=== PATIENT | female | born 1955 | race Caucasian/White ===

== ENCOUNTER → 2017-09-20 14:04 | Outpatient (CLI) | payer BC, SELFPAY ==
--- NOTE | 2017-09-20 14:10 | XR_ITS ---
XR chest 2V HISTORY: ITS.REASON: COPD WITH EXACERBATION ORDERING PHYSICIAN: Prisca Boone PATIENT AGE: 62 years COMPARISON: None FINDINGS: Unremarkable cardiovascular structures. There is hyperinflation with attenuation of the peripheral pulmonary vessels consistent with COPD. No lobar consolidation or collapse. Minimal blunting left CP angle. Small opacity noted in the right CP angle at 1 cm nonspecific. IMPRESSION: COPD, no acute finding. Nonspecific opacity right lung base with minimal blunting left CP angle. Follow-up suggested to confirm stability
== END ==
PROVIDERS: PCP Family Medicine; Visit Provider Nurse Practitioner
DX: J44.1 Chronic obstructive pulmonary disease with (acute) exacerbation (principal)
CPT/HCPCS: 71046

== ENCOUNTER → 2017-10-19 10:17 | Outpatient (CLI) | payer BC, SELFPAY ==
[2017-10-19 10:45] LABS: Blood Urea Nitrogen 27 mg/dL (7-18); Creatinine,Serum 1.13 mg/dL (0.55-1.02); Estimated Glomerular Filt Rate 49 ml/min (>60); GFR (African American) 59 ML/MIN (>60)
--- NOTE | 2017-10-19 11:03 | CT_ITS ---
CT chest w con HISTORY: ITS.REASON: ABNORMAL FINDING CXR,PERSONAL HX OF SMOKING ORDERING PHYSICIAN: Prisca Boone PATIENT AGE: 62 years COMPARISON: None TECHNIQUE: Axial images obtained following the administration of 75 mL of Isovue 370 . Sagittal, and coronal reformatted images are also generated and reviewed. All CT scans at the facility use one or more dose reduction, viz: automated exposure control; ma/kV adjustment per patient size (including targeted exams where dose is matched to indication; i.e. head); or iterative reconstruction technique. FINDINGS: There are scattered small mediastinal lymph nodes measuring up to 1.4 x 1 cm in the precarinal region. Normal heart size. No evidence of pericardial effusion. No mediastinal or hilar mass. There are centrilobular emphysematous changes with scattered areas of fibrosis.. There is an irregular opacity in the right upper lobe anteriorly and inferiorly with a component of this opacity measuring 12 x 11 mm with some adjoining irregular density inferior to this region. This may very well represent postinflammatory fibrotic change. Recommend a short-term CT follow-up in 3 months to confirm short-term stability. Other fibrotic changes are present as well including areas in the lower lobes and lingula. A 4 mm noncalcified nodules present in the superior segment of the left lower lobe. No effusions or infiltrates. Upper abdominal images are unremarkable. No dense of aneurysm or central pulmonary embolus. No acute bony anomalies. IMPRESSION: 1. Centrilobular emphysema with scattered areas of fibrosis. 2. 12 mm irregular opacity involving the nature aspect of the right upper lobe inferiorly which may be due to an area of pulmonary fibrosis. Recommend 3 month follow-up to confirm short-term stability
== END ==
PROVIDERS: Family Provider Family Medicine; PCP Family Medicine; Visit Provider Nurse Practitioner
DX: R93.8 Abnormal findings on diagnostic imaging of other specified body structures (principal); Z87.891 Personal history of nicotine dependence
CPT/HCPCS: 36415; 71260; 82565; 84520; Q9967

== ENCOUNTER → 2018-02-07 12:54 | Outpatient (CLI) | payer BC, SELFPAY ==
[2018-02-07 13:14] LABS: Blood Urea Nitrogen 19 mg/dL (7-18); Creatinine,Serum 0.93 mg/dL (0.55-1.02); Estimated Glomerular Filt Rate 61 ml/min (>60); GFR (African American) 74 ML/MIN (>60)
--- NOTE | 2018-02-07 13:23 | CT_ITS ---
CT chest w con HISTORY: Follow-up pulmonary nodule, follow-up abnormal chest CT ITS.REASON: PULMONARY NODULE ORDERING PHYSICIAN: Zachary Diaz MD PATIENT AGE: 62 years COMPARISON: 10/19/2017 TECHNIQUE: Axial images obtained following the administration of 75 mL of Isovue 370 . Sagittal, and coronal reformatted images are also generated and reviewed. All CT scans at the facility use one or more dose reduction, viz: automated exposure control, ma/kV adjustment per patient size (including targeted exams where dose is matched to indication, i.e. head), or iterative reconstruction technique. FINDINGS: Scattered small lymph nodes present in the mediastinum not significant changed. There are coronary artery calcifications. No mediastinal or hilar mass apparent. No evidence of aortic aneurysm or dissection. There are atheromatous changes of the aorta. No evidence of central pulmonary embolus. There is normal heart size without evidence of pericardial effusion. Centrilobular emphysema. The previously noted irregular opacity in the right upper lobe anteriorly is no longer apparent with only a small opacity noted at this region in subpleural area consistent with an area of inflammation or infection which has resolved Asymmetric density in the left apex once again noted not significantly changed. There is mild bronchial thickening. Fibrotic changes are present in the left lung base. There is a noncalcified 4 mm nodule in the central aspect of the left lower lobe unchanged. There are a few subpleural nodular opacities which are 2 or 3 mm unchanged. No new nodules evident. Upper abdominal images are unremarkable. No acute bony findings. IMPRESSION: 1. Centrilobular is edema/COPD with left apical fibrosis. 2. Right upper lobe nodule is no longer apparent. Only minimal residual density noted in this region consistent with an area of inflammation or infection chest resolved. 3. No new nodules apparent.
--- NOTE | 2018-02-07 13:43 | HMH.ITSHM ---
DENISE ORANTES BREO ALBUTEROL
== END ==
PROVIDERS: Nurse Practitioner; Family Provider Family Medicine; PCP Family Medicine; Visit Provider Family Medicine
DX: R91.1 Solitary pulmonary nodule (principal)
CPT/HCPCS: 36415; 71260; 82565; 84520; Q9967

== ENCOUNTER → 2018-11-23 11:47 | Outpatient (CLI) | payer BC, SELFPAY ==
--- NOTE | 2018-11-23 11:51 | XR_ITS ---
EXAM: XR thoracic spine 3V HISTORY: ITS.REASON: THORACIC BACK PAIN,SPASM OF THORACIC MUSCLE Comparison: None FINDINGS: Bone density and vertebral body heights are normal. There are multiple mid and lower thoracic areas of loss of disc space height which is greater in the mid thoracic area multiple levels with small anterior spurs. There is no subluxation or paraspinal soft tissue densities. Posterior elements are intact. There is mild curvature, convex towards the right of approximately 4 degrees at T8-9 level. Impression: No acute process. Generalized mid and lower chronic vertebral osteochondrosis. Secondary mild midthoracic dextroscoliosis.
== END ==
PROVIDERS: PCP Family Medicine; Visit Provider Nurse Practitioner
DX: M54.6 Pain in thoracic spine (principal); M62.830 Muscle spasm of back
CPT/HCPCS: 72072

== ENCOUNTER → 2020-08-12 11:08 | Outpatient (CLI) | payer OTHER, SELFPAY ==
--- NOTE | 2020-08-12 11:18 | XR_ITS ---
PROCEDURE: XR MULTIPLE SPINE 6+V CLINICAL INDICATION: C-SPINE,L-SPINE COMPARISON: No exams were available for comparison FINDINGS: Cervical spine: 6 views: Reversal of the upper cervical lordosis. 3 mm anterolisthesis of C2. Mild degenerative disc disease C3-C4. Moderate degenerative disc disease C4-C5 with 4 mm retrolisthesis of C4 and endplate osteophytes posteriorly. Degenerative disc disease C5-C6. 3 mm anterolisthesis C6 on C7. Facet hypertrophic changes are present from C3-C7. There is mild foraminal narrowing on the right at C5-C6 and on the left at C4-C5. No fracture or dislocation. Lumbar spine: Mild lumbar scoliosis convex right. Facet arthritic changes are present at L4-L5 and S1. Degenerative disc disease L2-L3 and L4-5. 5 mm anterolisthesis L4 on L5. There is diffuse vascular calcification with mild aneurysmal dilatation of the lower abdominal aorta at 2.8 cm on the lateral view. There is narrowing of the aorta just distal to this region at the L4-5 level. Luminal diameter cannot be calculated on plain film but is at least 50 percent going by the calcification. No acute fracture. IMPRESSION: Cervical and lumbar spondylosis as detailed above. Atherosclerotic vascular calcification of the carotid arteries and abdominal aorta with stenosis of the distal abdominal aorta Dictated by: Yoseph Gould MD 08/12/2020 14:47 Yoseph Gould MD in [place] 08/12/2020 14:47
--- NOTE | 2020-08-12 11:18 | XR_ITS ---
PROCEDURE: XR FACIAL BONES MIN 3V CLINICAL INDICATION: NOSE PAIN Injury with pain, left-sided facial bruising COMPARISON: No exams were available for comparison FINDINGS: There is a nondisplaced fracture involving the distal aspect of the nasal bone with minimal inferior angulation of the distal fracture fragment. No sinus air-fluid levels evident. Other findings:None. IMPRESSION: Nondisplaced nasal bone fracture Dictated by: Yoseph Gould MD 08/12/2020 15:00 Yoseph Gould MD in [facility] 08/12/2020 15:00
--- NOTE | 2020-08-12 11:18 | XR_ITS ---
PROCEDURE: XR CHEST 2V CLINICAL HISTORY: CHEST WALL PAIN COMPARISON: CR CXR2V XR chest 2V from 09/20/[address] chest w con from 02/07/2018 FINDINGS: The cardiomediastinal silhouette and pulmonary vascularity are within normal limits. COPD changes. Chronic blunting of the CP angles. No lobar consolidation or collapse. No evidence of pneumothorax. Previously noted parenchymal opacity in the right CP angle is somewhat less apparent. On the lateral view there is an ill-defined opacity overlying T5 vertebral body possibly due to an overlying osteophyte. Follow-up may confirm and to exclude the possibility of a developing nodule. No acute bony abnormalities. IMPRESSION: COPD. No acute finding. Nodular opacity overlies the T5 vertebral body may be due to overlying osteophyte or small nodule. Consider follow-up to confirm stability Dictated by: Yoseph Gould MD 08/12/2020 14:50 Yoseph Gould MD in [place] 08/12/2020 14:50
== END ==
PROVIDERS: PCP Family Medicine; Visit Provider Nurse Practitioner
DX: R07.89 Other chest pain (principal); M54.2 Cervicalgia; J34.89 Other specified disorders of nose and nasal sinuses; M54.41 Lumbago with sciatica, right side
CPT/HCPCS: 70150; 71046; 72084

== ENCOUNTER → 2020-10-01 07:58 | Outpatient (CLI) | payer BC, SELFPAY ==
--- NOTE | 2020-10-01 | CA_ITS ---
APPROVED REPORT Composition Weatherboard Installer: NGUYEN/JOSE GUADALUPE Laterality: Bilateral Study Quality: Excellent Risk Factors Hypertension: Smoking Doppler Spectral Velocity Analysis ECA (R) 82.20/21.20 cm/s ECA (L) 80.30/16.10 cm/s dICA (R) 131.10/55.70 cm/s dICA (L) 87.30/37.20 cm/s Madonna (R) 102.70/43.00 cm/s Madonna (L) 97.60/36.60 cm/s pICA (R) 80.30/26.30 cm/s pICA (L) 73.20/28.90 cm/s dCCA (R) 57.80/24.40 cm/s dCCA (L) 84.50/29.90 cm/s pCCA (R) 64.20/25.70 cm/s pCCA (L) 65.20/21.90 cm/s Vert (R) 35.30/11.20 cm/s Vert (L) 61.00/23.10 cm/s ICA/CCA 2.27 ICA/CCA 1.16 Findings Duplex evaluation demonstrates stenosis of the right proximal internal carotid artery in the range of 20-49%. Duplex evaluation demonstrates stenosis of the left proximal internal carotid artery in the range of 20-49%. Duplex evaluation demonstrates antegrade flow of the bilateral Vertebral Arteries. Conclusion Duplex evaluation demonstrates stenosis of the right proximal internal carotid artery in the range of 20-49%. Duplex evaluation demonstrates stenosis of the left proximal internal carotid artery in the range of 20-49%. Duplex evaluation demonstrates antegrade flow of the bilateral Vertebral Arteries. Electronically signed by : Yoseph Gould MD 10/01/2020 16:45:25
--- NOTE | 2020-10-01 08:02 | US_ITS ---
PROCEDURE: US AORTA CLINICAL INDICATION: AORTIC CALCIFICATIONS COMPARISON: No exams were available for comparison FINDINGS: Calcific plaque is present within the abdominal aorta with minimal ectasia of the mid abdominal aorta at 2.2 cm. Common iliacs do not appear dilated. IMPRESSION: Atheromatous changes of the aorta with only minimal dilatation of the infrarenal abdominal aorta at 2.2 cm. Dictated by: Yoseph Gould MD 10/01/2020 17:04 Yoseph Gould MD in [place] 10/01/2020 17:04
[2020-10-01 10:27] LABS: Blood Urea Nitrogen 16 mg/dl (7-17); Estimated Glomerular Filt Rate 72 ml/min (>60); GFR (African American) 88 ML/MIN (>60)
== END ==
PROVIDERS: PCP Family Medicine; Visit Provider Nurse Practitioner
DX: I70.0 Atherosclerosis of aorta (principal); I65.23 Occlusion and stenosis of bilateral carotid arteries
CPT/HCPCS: 36415; 76770; 82565; 84520; 93880

== ENCOUNTER → 2020-10-02 13:06 | Outpatient (CLI) | payer BC, SELFPAY ==
--- NOTE | 2020-10-02 13:11 | CT_ITS ---
PROCEDURE: CT CHEST W CON CLINCAL INDICATION: PULMONARY NODULE Follow-up pulmonary nodule COMPARISON: CT CHESTW CT chest w con from 10/19/[address] chest w con from 02/07/2018 TECHNIQUE: IV Contrast: 75ml Isovue 370 Axial images obtained with sagittal and coronal reformats. All CT scans at the facility use one or more dose reduction, viz: automated exposure control, ma/kV adjustment per patient size (including targeted exams where dose is matched to indication, i.e. head), or iterative reconstruction technique. FINDINGS: HEART AND MEDIASTINAL STRUCTURES: Scattered small mediastinal lymph nodes are once again noted overall not significantly changed. No mediastinal or hilar mass. No evidence of aortic aneurysm or dissection. No central pulmonary embolus. Coronary artery calcifications are present. LUNGS AND PLEURAL SPACES: COPD with centrilobular emphysema and scattered areas of scarring. There is a stable 4 mm nodule in the left lower lobe superiorly image 36 series 3. BONY STRUCTURES: No acute bony abnormalities apparent. UPPER ABDOMEN: Unremarkable. ADDITIONAL FINDINGS: No other significant abnormalities. IMPRESSION: Stable CT appearance of the chest. No acute finding with no significant change. COPD with centrilobular emphysema and scattered areas of scarring. Dictated by: Yoseph Gould MD 10/03/2020 07:37 Yoseph Gould MD in [facility] 10/03/2020 07:37
== END ==
PROVIDERS: PCP Family Medicine; Visit Provider Nurse Practitioner
DX: R91.1 Solitary pulmonary nodule (principal)
CPT/HCPCS: 71260; Q9967

== ENCOUNTER → 2021-11-05 21:12 | Outpatient (CLI) | payer BC, SELFPAY | PROVIDERS: PCP Nurse Practitioner; Visit Provider Nurse Practitioner | DX: S91.301A Unspecified open wound, right foot, initial encounter (principal) | CPT/HCPCS: 87070; 87077; 87186; 87205 ==

== ENCOUNTER → 2021-12-02 13:22 | Outpatient (CLI) | payer BC, SELFPAY ==
--- NOTE | 2021-12-02 13:30 | XR_ITS ---
FINAL REPORT CLINICAL HISTORY: Chest tightness COMPARISON: 08/12/2020 FINDINGS: The heart size is normal. The mediastinum is normal. There is no focal infiltrate or edema. There are no pleural effusions. There is no pneumothorax. There is no osseous abnormality. IMPRESSION: No acute cardiopulmonary process Reviewed, Interpreted and Dictated by Joshua Rosales III, MD Transcribed by Loc Mirza Authenticated and [facility]
--- NOTE | 2021-12-02 13:42 | ECG_ITS ---
APPROVED REPORT Exam: Resting ECG HR:102 bpm ECG Measurements Heart Rate 102 AXES WY 132 P 76 QRSd 85 QRS 57 QT 358 T 108 QTc 417 Conclusion SINUS TACHYCARDIA SEPTAL MYOCARDIAL INFARCTION , PROBABLY OLD [40+ ms Q WAVE IN V1/V2] ABNORMAL ECG UNCONFIRMED REPORT Electronically signed by : Thai Stephenson MD 12/02/2021 21:01:20
[2021-12-02 15:17] LABS: Adenovirus,PCR Not Detected (NotDetected); Coronavirus 229E Not Detected (NotDetected); Coronavirus NL63 Not Detected (NotDetected); Coronavirus OC43 Not Detected (NotDetected); Coronovirus HKU1,PCR Not Detected (NotDetected); Human Metapneumovirus Not Detected (NotDetected); Influenza A, PCR Not Detected (NotDetected); Influenza AH1, 2009 Not Detected (NotDetected); Influenza AH1, PCR Not Detected (NotDetected); Influenza AH3,PCR Not Detected (NotDetected); Influenza B, PCR Not Detected (NotDetected); Parainfluenza 1, PCR Not Detected (NotDetected); Parainfluenza 2, PCR Not Detected (NotDetected); Parainfluenza 3, PCR Not Detected (NotDetected); Parainfluenza 4, PCR Not Detected (NotDetected); Respiratory Syncytial Virus Not Detected (NotDetected); Rhinovirus/Enterovirus Not Detected (NotDetected)
[2021-12-02 15:18] LABS: Bordetella Pertussis Not Detected (NotDetected); Chlamydophila Pneumoniae, PCR Not Detected (NotDetected); Coronavirus 19, PCR Not Detected (NotDetected); Mycoplasma Pneumoniae, PCR Not Detected (NotDetected)
[2021-12-02 15:21] LABS: Basophils # 0.1 K/mm3 (0-0.2); Basophils % 0.9 % (0.1-2.0); Eosinophils % 0.2 % (0.1-12.0); Hematocrit 51.8 % (37.0-47.0); Hemoglobin 17.1 g/dL (12.2-16.2); Lymphocytes # 2.2 K/mm3 (0.7-4.5); Lymphocytes % 17.3 % (10-50); Mean Corpuscular HGB Conc 33.1 g/dL (31.8-35.4); Mean Corpuscular Hemoglobin 30.2 pg (27.0-31.2); Mean Corpuscular Volume 91.1 fl (81-99); Mean Platelet Volume 8.5 fl (7.4-10.4); Monocytes # 0.9 K/mm3 (0.1-1.0); Monocytes % 6.6 % (1.7-9.3); Neutrophils # 9.8 K/mm3 (1.8-7.8); Neutrophils % 75.1 % (37.0-80.0); Platelet Count 468 K/mm3 (142-424); Red Blood Count 5.68 M/mm3 (4.20-5.40); Red Cell Distribution Width 14.5 % (11.5-17.5)
[2021-12-02 15:31] LABS: Monoscreen (Rapid) Negative (Negative)
[2021-12-02 15:36] LABS: Alanine Aminotransferase 23 U/L (12-78); Albumin Level 4.5 g/dl (3.5-5.0); Albumin/Globulin Ratio 1.5 (1.1-1.8); Alkaline Phosphatase 134 U/L (38-126); Anion Gap 12.6 mEq/L (5-15); Aspartate Amino Transferase 39 U/L (14-36); Bilirubin,Total 0.5 mg/dl (0.2-1.3); Blood Urea Nitrogen 51 mg/dl (7-17); Calcium 9.2 mg/dl (8.4-10.2); Carbon Dioxide 25 mmol/L (22.0-30.0); Chloride 98 mmol/L (98-107); Estimated Glomerular Filt Rate 27 ml/min (>60); GFR (African American) 32 ML/MIN (>60); Glucose 121 mg/dl (74-100); Potassium 3.6 mmoL/L (3.5-5.1); Sodium 132 mmol/L (136-145); Total Protein,Serum 7.5 g/dl (6.3-8.2)
[2021-12-02 15:51] LABS: Troponin I < 0.01 ng/ml (0.00-0.034)
== END ==
LOC: COVID.OUT 13:24
PROVIDERS: PCP Nurse Practitioner; Visit Provider Nurse Practitioner
DX: Z20.822 Contact with and (suspected) exposure to COVID-19 (principal); R07.89 Other chest pain; R11.2 Nausea with vomiting, unspecified; J06.9 Acute upper respiratory infection, unspecified; R53.83 Other fatigue
CPT/HCPCS: 36415; 71045; 80053; 84484; 85025; 86318; 87581; 87632; 87798; 93005; C9803; U0003; U0005

== ENCOUNTER → 2021-12-04 10:23 | Outpatient (CLI) | payer BC, SELFPAY ==
[2021-12-04 10:55] LABS: Basophils # 0.1 K/mm3 (0-0.2); Basophils % 0.7 % (0.1-2.0); Eosinophils % 0.3 % (0.1-12.0); Hematocrit 49.2 % (37.0-47.0); Hemoglobin 15.7 g/dL (12.2-16.2); Lymphocytes # 2.7 K/mm3 (0.7-4.5); Lymphocytes % 22.4 % (10-50); Mean Corpuscular Hemoglobin 29.9 pg (27.0-31.2); Mean Corpuscular Volume 93.3 fl (81-99); Mean Platelet Volume 8.2 fl (7.4-10.4); Monocytes # 0.9 K/mm3 (0.1-1.0); Monocytes % 7.5 % (1.7-9.3); Neutrophils # 8.2 K/mm3 (1.8-7.8); Neutrophils % 69.2 % (37.0-80.0); Platelet Count 472 K/mm3 (142-424); Red Blood Count 5.27 M/mm3 (4.20-5.40); Red Cell Distribution Width 14.4 % (11.5-17.5); White Blood Count 11.9 K/mm3 (4.8-10.8)
[2021-12-04 11:22] LABS: Anion Gap 12.7 mEq/L (5-15); Blood Urea Nitrogen 41 mg/dl (7-17); Calcium 9.7 mg/dl (8.4-10.2); Carbon Dioxide 26 mmol/L (22.0-30.0); Chloride 95 mmol/L (98-107); Estimated Glomerular Filt Rate 30 ml/min (>60); GFR (African American) 37 ML/MIN (>60); Glucose 119 mg/dl (74-100); Potassium 3.7 mmoL/L (3.5-5.1); Sodium 130 mmol/L (136-145)
[2021-12-04 11:31] LABS: NT Pro Brain Natriuretic Pep. 626 pg/mL (0-125)
== END ==
PROVIDERS: PCP Nurse Practitioner; Visit Provider Internal Medicine Cardiovascular Disease
DX: R06.00 Dyspnea, unspecified (principal); R07.89 Other chest pain; R00.0 Tachycardia, unspecified; I73.9 Peripheral vascular disease, unspecified; R53.83 Other fatigue; R94.31 Abnormal electrocardiogram [ECG] [EKG]; Z82.49 Family history of ischemic heart disease and other diseases of the circulatory system
CPT/HCPCS: 36415; 80048; 83880; 85025

== ENCOUNTER → 2021-12-10 07:54 | Outpatient (CLI) | payer BC, SELFPAY ==
--- NOTE | 2021-12-10 | CA_ITS ---
APPROVED REPORT Exam: Pharmacologic Technologist: Evelin Duarte, Ht: 5 ft 5 in Wt: 134 lbs BSA: 1.67 m2 HR: 75 bpm BP: 190/100 mmHg Rhythm: NSR, cannot R/O old anteroseptal [place], ST abns inferiorly. Medical History Medical History: HTN, Smoking Medications: Lisinopril,,,,, Montelukast,,,,, CHlorthalidone,,,,, EsZOPICLONE,,,,, Levoflaxacin,,,,, CyclobenAPRINE,,,,, Trelegy,,,,, ONdanESETRAN,,,,, MuPirocin,,,,, ClonAZapam,,,,, Cardiac Risk Factors: HTN, Smoking Stress Test Details Test: LEXISCAN HR Resting HR: 75 bpm Max Heart Rate (APMHR): 156.512126 bpm Max HR Achieved: 94 bpm Target HR (85% APMHR): 132.161686 bpm % of APMHR: 60.26 Recovery HR: 87 bpm BP Resting BP: 190/100 mmHg Max BP: 214/103 mmHg Recovery BP: 212.0/103.0 mmHg ECG Resting ECG: NSR, cannot R/O old anteroseptal NJ, ST abns inferiorly Clinical Exercise duration: 04:00 min Highest Stage Achieved: Exercise capacity: 1.0 METs Stress ECG Conclusion Pt stopped taking BP meds 10 days ago, switched to lexiscan due to HTN. Pt experinced SOA, nausea, mild MCGRATH, no CP noted. Rare PAC noted. Mild exaggeration of basline ST abns. Non diagnostic lexiscan stress. Myoview images reported separately. Electronically signed by : Artis Allen MD 12/11/2021 10:24:28
--- NOTE | 2021-12-10 08:33 | NM_ITS ---
APPROVED REPORT Exam: Nuclear Stress Test Indication: HTN, TOB USE , FM HX., SOB, FATIGUE Patient Location: Outpatient Stress Tech: Evelin TAFOYA Tech:Moraima Gupta FRANTZ RT(R)(N) Ht: 5 ft 3 in Wt: 140 lbs Bra Size: 36A HR: 75 bpm BP: 190/100 mmHg BSA: 1.66 m2 TID: 1.09 BMI: 24.7 History: HTN, TOB USE, FM HX., SOB, FATIGUE Procedure: Patient received a 0.4 mg of intravenous Lexiscan, resting heart rate 75 bpm, resting blood pressure 190/100 mmHg, with Lexiscan maximum heart rate achived was 94 bpm which is Less than 85 % of the maximum predicted heart rate and blood pressure was 214/103 mmHg. With Lexiscan, patient denied any complaint of chest pain. Electrocardiogram Resting electrocardiogram showed sinus rhythm nonspecific ST-T changes, with Lexiscan there is less than 1.[address] segment depression noted from the baseline EKG. The EKG portion of the Lexiscan is nondiagnostic. Cardiac Stress and Resting SPECT Images: Cardiac Stress and Resting SPECT images were obtained using technetium 99m Myoview 31.1 mCi stress and 10.16 mCi at rest. Gated SPECT analysis of segmental wall motion and calculation of the ejection fraction also done. Prone images were also obtained. Cardiac stress and resting SPECT images show partial reversible defect involving the inferoseptal and apical wall consistent with mixed ischemia and scar, computer derived ejection fraction is 58% with mild inferoseptal wall hypokinesis. Right ventricle is normal size and contractility. Conclusion: 1. The EKG portion of the Lexiscan is nondiagnostic. 2. Scintigraphic evidence of mixed ischemia and scar involving the inferoseptal and apical wall, computer derived ejection fraction 58% with segmental wall motion abnormality described above, right ventricle is normal size and contractility. 3. Abnormal Lexiscan Myoview study. Electronically signed by : Artis Allen MD 12/11/2021 10:26:51
--- NOTE | 2021-12-10 08:39 | CA_ITS ---
APPROVED REPORT EXAM: Comprehensive 2D, Doppler, and color-flow Echocardiogram Prop Drawer: Shruthi River RDCS Ht: 5 ft 5 in Wt: 134lbs BSA: 1.67 BP: 132/79 mmHg Indications: CP,SOA,ABN EKG 2D Dimensions LVOT 1.71 cm (M/F) 1.5-2.5 M-Mode Dimensions RVDd 2.05 cm (0.9-2.6) LA Diam 3.35 cm (1.9-4.0) LVDd 4.90 cm (3.5-5.7) Ao Diam 3.05 cm (2.0-3.7) LVDs 3.27 cm (3.5-5.7) IVSd 0.87 cm (0.6-1.1) PWd 0.80 cm (0.6-1.1) EF (Teich) 61.70% FS 33.30% EDV (Teich) 112.80 mL TAPSE 2.36 (<1.7) ESV (Teich) 43.20 mL LV Diastology E Decel Time 140.00 (160-240 msec) E/A Ratio 0.8 MED E' 5.50 (< 7 cm/sec) E'/MED E' Ratio 13.25 (>14) LAT E' 6.70 (<10 cm/sec) E/LAT E' Ratio 10.88 (>14) Aortic Valve LVOT Max 111.00 (70-110 cm/s) LVOT VTI 23.82 cm AoV Peak David. 145.00 (50-130 cm/s) AO Peak GR. 8.40 mmHg AO Mean GR. 4.20 (<5 mmHg) AO VTI 29.66 (18-25 cm) BRADLEY (VTI) 1.84 (2.5-4.5 cm2) Mitral Valve MV E Max David. 73.00 (40-130 cm/s) MV A Velocity 93.00 (40-130 cm/s) E/A Ratio 0.78 MV Decel. Time 140.00 (160-240 ms) MV PHT 41.00 ms Left Ventricle Left atrium is mildly enlarged, left ventricle is normal size mild concentric left ventricular hypertrophy, estimated ejection fraction 55% with no regional wall motion abnormality, grade 1 diastolic dysfunction seen without tissue Doppler evidence of raise left atrial pressure. Right Ventricle Right atrium and right ventricle are normal size and contractility. Aortic Valve Aortic valve is minimally thickened and fibrosed there is no aortic stenosis aortic insufficiency. Mitral Valve Mitral valve grossly normal, there is trace mitral regurgitation. Tricuspid Valve Tricuspid valve is grossly normal, there is trace tricuspid regurgitation, tricuspid regurgitation jet velocity is inadequate for calculation of the right ventricular systolic pressure. Pulmonic Valve Pulmonic valve is poorly visualized. Great Vessels Aortic root is normal size. Inferior vena cava is normal size with normal inspiratory collapse. Pericardium No significant pericardial effusion noted. Conclusion 1. Mildly enlarged left atrium, normal left ventricular size mild concentric left ventricular hypertrophy, estimated ejection fraction 55% with no regional wall motion abnormality, grade 1 diastolic dysfunction without tissue Doppler evidence of raise left atrial pressure. 2. Trace mitral and tricuspid regurgitation. 3. No significant pericardial effusion. 4. Inferior vena cava normal size with normal inspiratory collapse. Electronically signed by : Artis Allen MD 12/11/2021 15:44:56
== END ==
PROVIDERS: PCP Nurse Practitioner; Visit Provider Nurse Practitioner
DX: R07.89 Other chest pain (principal); R53.83 Other fatigue
CPT/HCPCS: 78452; 93017; 93306; A9502; J2785

== ENCOUNTER → 2021-12-17 12:15 | Outpatient (CLI) | payer BC, SELFPAY ==
[2021-12-17 15:00] LABS: Basophils # 0.1 K/mm3 (0-0.2); Basophils % 0.6 % (0.1-2.0); Eosinophils # 0.1 K/mm3 (0.0-0.4); Eosinophils % 1.1 % (0.1-12.0); Hematocrit 43.1 % (37.0-47.0); Hemoglobin 13.3 g/dL (12.2-16.2); Lymphocytes # 1.8 K/mm3 (0.7-4.5); Mean Corpuscular HGB Conc 30.8 g/dL (31.8-35.4); Mean Corpuscular Volume 97.5 fl (81-99); Mean Platelet Volume 8.5 fl (7.4-10.4); Monocytes # 0.3 K/mm3 (0.1-1.0); Monocytes % 4.7 % (1.7-9.3); Neutrophils # 5.1 K/mm3 (1.8-7.8); Neutrophils % 69.7 % (37.0-80.0); Platelet Count 342 K/mm3 (142-424); Red Blood Count 4.42 M/mm3 (4.20-5.40); Red Cell Distribution Width 15.2 % (11.5-17.5); White Blood Count 7.4 K/mm3 (4.8-10.8)
[2021-12-17 15:16] LABS: Anion Gap 12.7 mEq/L (5-15); Blood Urea Nitrogen 15 mg/dl (7-17); Calcium 9.6 mg/dl (8.4-10.2); Carbon Dioxide 22 mmol/L (22.0-30.0); Chloride 108 mmol/L (98-107); Estimated Glomerular Filt Rate 56 ml/min (>60); GFR (African American) 68 ML/MIN (>60); Glucose 139 mg/dl (74-100); Potassium 3.7 mmoL/L (3.5-5.1); Sodium 139 mmol/L (136-145)
== END ==
PROVIDERS: PCP Family Medicine; Visit Provider Physician Assistant
DX: Z01.812 Encounter for preprocedural laboratory examination (principal); Z20.822 Contact with and (suspected) exposure to COVID-19; R06.09 Other forms of dyspnea; I20.8 Other forms of angina pectoris; I63.9 Cerebral infarction, unspecified; R53.83 Other fatigue; R94.31 Abnormal electrocardiogram [ECG] [EKG]; R94.39 Abnormal result of other cardiovascular function study
CPT/HCPCS: 36415; 80048; 85025; C9803; U0003; U0005

== ENCOUNTER 2021-12-22 09:30 | Outpatient (RCR) | payer BC, SELFPAY ==
--- NOTE | 2021-12-08 09:10 | HMH.PTOPWND ---
Rehab Outpt Wound Evaluation Rehab OP Wound Evaluation Start: 12/08/21 08:39 Freq: Status: Active Protocol: Document 12/08/21 09:04 CHRISTIANNEJANNETTE (Rec: 12/08/21 09:09 PWJANNETTE [id number]) Electronically Signed By Lemuel Maciel PT 12/08/21 09:04 Subjective/History History History This is the initial wound clinic evaluation for Charlotte Nair. Pt is a 66 y/o female referred to PT wound clinic for non-healing wound on R heel. Pt reports injury occurred at the end of September. Pt rpeorts she was walking through her front door and caught her heel on the edge of the storm door. Subjective Subjective Pt reports that she has been soaking her foot and she was trying to keep it covered but callused skin has prevented bandages from sticking. Wound Eval Wound Right Heel Wound Type Laceration Is This a Chronic Wound Yes Wound Length (cm) 2.0 Wound Width (cm) 0.9 Wound Depth (cm) 0.2 Wound Bed Appearance Beefy Red Percentage Granulated (%) 100 Wound Margins Description Well Defined Edema Degree None Query Text:1+ Trace, Barely Detectable, Rebound 15-30 seconds 2+ Moderate, Slight Indentation, Rebound 10-20 seconds 3+ Deep, Deeper Indentation, Rebound > 30 seconds 4+ Very Deep, Rebound > 60 seconds Surrounding Tissue Temperature Warm Drainage Description None Drainage Amount None Drainage Odor No Odor Dressing Status Open to Air Wound Topical Solution/Irrigant Antibiotic Irrigant Primary Dressing Silver Dressing Comment tegederm ag mesh Wound Secondary Dressing Type Absorbant Pad Wound Debridement Method Sharps,Forceps Wound Debridement Amount of Tissue Minimal Removed Wound Debridement Result Healthy Tissue Revealed Dressing Change Date 12/08/21 Wound Problems/Impairments Impairments Problems/Impairmments Wound Care Needs,Impaired Self Care/Self Management Prognosis Rehab Potential Good Clinical Impression Consistent with Diagnosis Yes Short Term Goals Number of Weeks 3 Decrease Wound Area Yes: 50% Patient to be Ind
== END 2021-12-22 09:35 | disposition home or self-care (01) ==
LOC: PT 09:30
PROVIDERS: PCP Nurse Practitioner; Visit Provider Nurse Practitioner
DX: S91.301D Unspecified open wound, right foot, subsequent encounter (principal)
CPT/HCPCS: 97161; 97597

== ENCOUNTER 2021-12-24 08:42 | Day surgery (SDC) | payer BC, SELFPAY ==
[2021-12-24] VITALS (14 sets, daily range): BP systolic 149–221; BP diastolic 64–105; PULSE 67–77; RESP 16–18; TEMP 36.8; O2SAT 95–100; BMI 23.4
--- NOTE | 2021-12-24 | IR_ITS ---
APPROVED REPORT Patient Location: Outpatient Dairy Manager: FRANTZ Gilmore RT (R) PROCEDURES Left heart catheterization Left ventriculogram Selective coronary angiogram Drug-eluting stent deployment to the circumflex artery Intravascular ultrasound of the LAD INDICATION Abnormal stress test, Angina pectoris, Coronary artery disease, Angiographic ambiguity at a bifurcation involving the proximal LAD Informed consent was obtained prior to the procedure. COMPLICATIONS None Estimated Blood Loss: Less than 10 mls TECHNIQUE One percent lidocaine used to anesthetize the right anterior aspect of the wrist. The right radial artery was accessed via the Seldinger technique. A 6 Maltese sheath was placed in the right radial artery. 2.5 mg of verapamil, 800 mcg of nitroglycerin, 1mg Lidocaine and 5000 U Heparin were given through the arterial sheath. The papa catheter was also used to perform left heart catheterization, left ventriculogram and selective coronary angiogram. At the end the diagnostic angiogram therapeutic heparin was administered giving a therapeutic ACT and the guide catheter was placed in the left main artery followed by a Choice PT extra-support wire in the circumflex artery A 2.75 x 22 mm resolute Javy stent was deployed at 20 rene reducing the severe to critical stenosis to 0%. SANDI-3 flow was present before and after the procedure. At the end of the diagnostic angiogram the wire was pulled back and placed into the LAD. There was ambiguity in the proximal LAD where the LAD and diagonal artery cannot be properly laid out angiographically. Because of the nature of the proximal LAD and the ambiguity it was decided to proceed with intravascular ultrasound. Intravascular ultrasound probe was advanced and the interrogation of the proximal LAD revealed an MLA of 6.4 mm???. Given this was a nonhemodynamically significant lesion the apparatus was removed the sheath was removed good hemostasis was achieved using TR banding patient was transferred to the postop putting in stable condition ANGIOGRAPHIC RESULTS The left main artery Normal The left anterior descending artery Has a proximal 40% stenosis immediately adjacent to a large first diagonal artery. The remaining LAD has diffuse 20 to 30% stenoses. A large first diagonal artery has 10 to 20% stenoses. The circumflex artery Is a large dominant system and gives rise to a ramus intermedius which has proximal 10 to 20% stenoses. The first obtuse marginal artery has a proximal concentric 40 to 50% stenosis along a tortuous bend where the vessel was 2.0 mm in diameter. Distal to the first obtuse marginal artery the circumflex artery has a concentric 90% stenosis and gives rise to a large posterior descending artery. The right coronary artery Nondominant and has a proximal concentric 60% stenosis The VERA ventriculogram reveals Normal 60% The left ventricular end-diastolic pressure 20 mmHg LAD MLA 6.4 mm??? IMPRESSION Severe single-vessel disease in the mid dominant circumflex artery as described above with successful stenting reducing lesion to 0% with 1 drug-eluting stent Moderate proximal and mid LAD disease Moderate stenosis in a 2 mm first obtuse marginal artery Moderate stenosis in a proximal nondominant 2.25 mm right coronary Normal ejection fraction Mildly elevated LVEDP PLAN 1. Dual antiplatelet therapy 2. LDL less than 55 to be treated with high intensity statin 3. Risk factor modification 4. Cardiac rehabilitation 5. Avoidance of tobacco products 6. Medical management for the remaining lesions Electronically signed by : Vidal Moise MD 12/24/2021 10:31:49
[2021-12-24 10:38] LABS: CATHL Activated Clotting Time 243 SEC (74-125)
--- NOTE | 2021-12-24 14:41 | P.CONPHA_ITS ---
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 -JUAN AVELAR, VEENAD
== END 2021-12-24 14:30 | disposition home or self-care (01) ==
PROVIDERS: PCP Nurse Practitioner; Visit Provider Internal Medicine
DX: I25.118 Atherosclerotic heart disease of native coronary artery with other forms of angina pectoris (principal); F17.210 Nicotine dependence, cigarettes, uncomplicated; Z79.899 Other long term (current) drug therapy; I10 Essential (primary) hypertension; J44.9 Chronic obstructive pulmonary disease, unspecified; Z82.49 Family history of ischemic heart disease and other diseases of the circulatory system; I70.223 Atherosclerosis of native arteries of extremities with rest pain, bilateral legs
CPT/HCPCS: 85347; 92928; 92978; 93458; 99152; C1725; C1769; C1876; C9600; J1644; Q9967

== ENCOUNTER → 2022-01-05 07:31 | Outpatient (CLI) | payer BC, SELFPAY ==
[2022-01-05 20:40] LABS: Basophils # 0.1 K/mm3 (0-0.2); Basophils % 0.6 % (0.1-2.0); Eosinophils # 0.1 K/mm3 (0.0-0.4); Eosinophils % 0.6 % (0.1-12.0); Hematocrit 35.7 % (37.0-47.0); Hemoglobin 11.4 g/dL (12.2-16.2); Lymphocytes # 2.5 K/mm3 (0.7-4.5); Lymphocytes % 29.1 % (10-50); Mean Corpuscular HGB Conc 31.9 g/dL (31.8-35.4); Mean Corpuscular Hemoglobin 29.4 pg (27.0-31.2); Mean Platelet Volume 8.7 fl (7.4-10.4); Monocytes # 0.5 K/mm3 (0.1-1.0); Monocytes % 5.9 % (1.7-9.3); Neutrophils # 5.5 K/mm3 (1.8-7.8); Neutrophils % 63.8 % (37.0-80.0); Platelet Count 384 K/mm3 (142-424); Red Blood Count 3.88 M/mm3 (4.20-5.40); White Blood Count 8.5 K/mm3 (4.8-10.8)
[2022-01-05 21:12] LABS: Blood Urea Nitrogen 24 mg/dl (7-17); Calcium 9.1 mg/dl (8.4-10.2); Carbon Dioxide 28 mmol/L (22.0-30.0); Chloride 108 mmol/L (98-107); Estimated Glomerular Filt Rate 63 ml/min (>60); GFR (African American) 76 ML/MIN (>60); Glucose 80 mg/dl (74-100); Sodium 141 mmol/L (136-145)
== END ==
PROVIDERS: PCP Nurse Practitioner; Visit Provider Nurse Practitioner
DX: R53.83 Other fatigue (principal)
CPT/HCPCS: 80048; 85025

== ENCOUNTER → 2022-05-11 15:40 | Outpatient (CLI) | payer BC, SELFPAY ==
[2022-05-11 18:24] LABS: Coronavirus 19, PCR Not Detected (NotDetected); Influenza A, PCR Not Detected (NotDetected); Influenza B, PCR Not Detected (NotDetected)
== END ==
PROVIDERS: PCP Nurse Practitioner; Visit Provider Nurse Practitioner
DX: J06.9 Acute upper respiratory infection, unspecified (principal)
CPT/HCPCS: C9803; U0003; U0005

== ENCOUNTER → 2022-05-27 07:04 | Outpatient (CLI) | payer BC, SELFPAY ==
[2022-05-27 18:39] LABS: Adenovirus,PCR Not Detected (NotDetected); Bordetella Pertussis Not Detected (NotDetected); Chlamydophila Pneumoniae, PCR Not Detected (NotDetected); Coronavirus 229E Not Detected (NotDetected); Coronavirus NL63 Not Detected (NotDetected); Coronavirus OC43 Not Detected (NotDetected); Coronovirus HKU1,PCR Not Detected (NotDetected); Human Metapneumovirus Not Detected (NotDetected); Influenza A, PCR Not Detected (NotDetected); Influenza AH1, 2009 Not Detected (NotDetected); Influenza AH1, PCR Not Detected (NotDetected); Influenza AH3,PCR Not Detected (NotDetected); Influenza B, PCR Not Detected (NotDetected); Mycoplasma Pneumoniae, PCR Not Detected (NotDetected); Parainfluenza 1, PCR Not Detected (NotDetected); Parainfluenza 2, PCR Not Detected (NotDetected); Parainfluenza 3, PCR Not Detected (NotDetected); Parainfluenza 4, PCR Not Detected (NotDetected); Respiratory Syncytial Virus Not Detected (NotDetected); Rhinovirus/Enterovirus Not Detected (NotDetected)
[2022-05-27 19:04] LABS: Basophils % 0.5 % (0.1-2.0); Eosinophils % 0.1 % (0.1-12.0); Hematocrit 39.6 % (37.0-47.0); Hemoglobin 12.5 g/dL (12.2-16.2); Lymphocytes # 0.7 K/mm3 (0.7-4.5); Lymphocytes % 12.9 % (10-50); Mean Corpuscular HGB Conc 31.6 g/dL (31.8-35.4); Mean Platelet Volume 8.6 fl (7.4-10.4); Monocytes # 0.5 K/mm3 (0.1-1.0); Monocytes % 10.5 % (1.7-9.3); Neutrophils # 3.9 K/mm3 (1.8-7.8); Platelet Count 286 K/mm3 (142-424); Red Blood Count 4.82 M/mm3 (4.20-5.40); White Blood Count 5.1 K/mm3 (4.8-10.8)
[2022-05-27 19:12] LABS: 25-OH Vitamin D, Total 65.5 ng/mL (30-100)
[2022-05-27 20:51] LABS: Coronavirus 19, PCR Detected (NotDetected)
== END ==
LOC: LAB.DROPOF 05-28 07:05
PROVIDERS: PCP Nurse Practitioner; Visit Provider Nurse Practitioner
DX: U07.1 COVID-19 (principal); E55.9 Vitamin D deficiency, unspecified; J06.9 Acute upper respiratory infection, unspecified
CPT/HCPCS: 82306; 85025; 87581; 87632; 87798; C9803; U0003; U0005

== ENCOUNTER → 2022-05-28 10:03 | Outpatient (CLI) | payer BC, SELFPAY ==
--- NOTE | 2022-05-28 | ECG_ITS ---
APPROVED REPORT Exam: Resting ECG HR:87 bpm ECG Measurements Heart Rate 87 AXES WV 154 P 81 QRSd 81 QRS 75 QT 361 T 89 QTc 406 Conclusion SINUS RHYTHM Old anteroseptal late r wave progression ABNORMAL ECG UNCONFIRMED REPORT Electronically signed by : Thai Stephenson MD 05/28/2022 15:43:50
--- NOTE | 2022-05-28 10:08 | XR_ITS ---
FINAL REPORT CLINICAL HISTORY: pneumonia, COPD exacerbation COMPARISON: 12/02/2021 FINDINGS: There are underlying emphysematous changes. No acute pulmonary density is present. No significant pleural effusion. There is no pneumothorax. The heart is normal in size. The mediastinum is unremarkable. IMPRESSION: Emphysema without acute process. Reviewed, Interpreted and Dictated by Natacha Vora MD Transcribed by Munira Holman Authenticated and [facility]
== END ==
PROVIDERS: PCP Family Medicine; Visit Provider Nurse Practitioner
DX: R07.89 Other chest pain (principal); J18.9 Pneumonia, unspecified organism
CPT/HCPCS: 71046; 93005

== ENCOUNTER → 2022-09-22 11:40 | Outpatient (CLI) | payer BC, SELFPAY ==
--- NOTE | 2022-09-22 | CA_ITS ---
APPROVED REPORT Exam: Pharmacologic Technologist: Evelin Duarte, Ht: 5 ft 5 in Wt: 143 lbs BSA: 1.72 m2 HR: 80 bpm BP: 163/96 mmHg Rhythm: NSR, cannot R/O old anterior HI, NS ST abn Medical History Medications: Amlodipine,,,,, Lisinopril,,,,, Aspirin,,,,, Metoprolol Succinate,,,,, ClonAZEPAM,,,,, Albuterol,,,,, Montelukast,,,,, ADVAIR,,,,, Cyclobenzaprine,,,,, EsZOPICLONE,,,,, Varenicline,,,,, Cardiac Risk Factors: HTN, Hyperlipidemia, Smoking Stress Test Details Test: LEXISCAN HR Resting HR: 80 bpm Max Heart Rate (APMHR): 155 bpm Max HR Achieved: 97 bpm Target HR (85% APMHR): 132 bpm % of APMHR: 63 Recovery HR: 86 bpm BP Resting BP: 163/96 mmHg Max BP: 187/92 mmHg Recovery BP: 186.0/101.0 mmHg ECG Resting ECG: NSR, cannot R/O old anterior HI, no significant ST-T changes Stress ECG: No change from baseline Arrhythmia: None Clinical Exercise duration: 04:00 min Highest Stage Achieved: Exercise capacity: n/a METs Stress ECG Conclusion During lexiscan stress pt experinced SOA, nausea, and mild chest pressure. No arrhythmias noted. No significant ischemic changes were noted following administration of regadenoson. Unremarkable lexiscan ECG stress test. Myoview images reported separately. Test Summary REST . . . . . . . Sitting REST 06:39 . . 80 . 163/ 96 . . Stage 1 01:00 . . 94 . . . . Stage 2 01:00 . . 95 . 158/ 90 . . Stage 3 01:00 . . 91 . . . . Stage 4 01:00 . . 88 . 172/ 94 . Stop exercise at 04:00 RECOVERY 01:00 . . 86 . 187/ 92 . . RECOVERY 02:00 . . 90 . 187/ 92 . . RECOVERY 03:00 . . 90 . 186/101 . . RECOVERY 04:00 . . 88 . 186/101 . . RECOVERY 04:46 . . 90 . 167/ 96 . . Electronically signed by : Bushra Seals, 09/23/2022 00:49:01
--- NOTE | 2022-09-22 11:41 | NM_ITS ---
APPROVED REPORT Exam: Nuclear Stress Test Indication: CAD, 2 STENTS, HTN, TOB USE, FM HX, C.P., SOB, FATIGUE Patient Location: Outpatient Stress Tech: Evelin Duarte NM Tech:Moraima Gupta EVERJerome RT(R)(N) Ht: 5 ft 4 in Wt: 144 lbs Bra Size: 36B HR: 80 bpm BP: 163/96 mmHg BSA: 1.70 m2 TID: 1.32 BMI: 24.7 History: CAD, 2 STENTS, HTN, TOB USE, FM HX, C.P., SOB, FATIGUE Procedure: Patient received 0.4 mg of intravenous Lexiscan, resting heart rate 80 bpm, resting blood pressure 163/96 mmHg, with AdenosineLexiscan maximum heart rate achieved was 93 bpm which is 60 % of the maximum predicted heart rate and blood pressure was 187/92 mmHg. C/O MILD C.P. Cardiac Stress and Resting SPECT Images: Cardiac Stress and Resting SPECT images were obtained using technetium 99m Myoview 32.3 mCi stress and 10.35 mCi at rest. Resting and stress imaging in supine and prone positions demonstrate a medium-sized, mild, fixed perfusion defect in the mid to distal inferior and inferoseptal LV wall. No evidence of reversible ischemia. There is a high transient ischemic dilatation ratio (TID=1.32) suggestive of possible balanced ischemia or multivessel disease. Gated imaging demonstrates a normal global LV systolic function. There is mild hypokinesis of the mid to distal inferior and inferoseptal LV wall. LVEF is calculated at 74% Conclusion: Medium-sized, mild, fixed perfusion defect in the mid to distal inferior and inferoseptal LV wall. No evidence of reversible ischemia. High transient ischemic dilatation ratio (TID=1.32) suggestive of possible balanced ischemia or multivessel disease. Gated imaging demonstrates a normal global LV systolic function. There is mild hypokinesis of the mid to dista inferior andl inferoseptal LV wall. LVEF is calculated at 74% Electronically signed by : Bushra Seals, 09/23/2022 01:01:58
== END ==
LOC: RAD 11:40
PROVIDERS: PCP Nurse Practitioner; Visit Provider Nurse Practitioner Family
DX: R06.00 Dyspnea, unspecified (principal); I20.8 Other forms of angina pectoris; F17.200 Nicotine dependence, unspecified, uncomplicated; Z95.5 Presence of coronary angioplasty implant and graft
CPT/HCPCS: 78452; 93017; 93306; A9502; J2785

== ENCOUNTER 2022-10-05 09:07 | Day surgery (SDC) | payer BC, SELFPAY ==
[2022-10-05] VITALS (15 sets, daily range): BP systolic 115–165; BP diastolic 56–97; PULSE 58–73; RESP 16–18; TEMP 36.9; O2SAT 92–97; BMI 23.8
--- NOTE | 2022-10-05 07:05 | IR_ITS ---
APPROVED REPORT Patient Location: Outpatient PROCEDURES Selective coronary angiogram Drug-eluting stent deployment to the proximal to mid dominant circumflex artery Intravascular ultrasound of the LAD INDICATION Coronary artery disease, Angina pectoris, Abnormal Myoview, Angiographic ambiguous proximal LAD, Informed consent was obtained prior to the procedure. COMPLICATIONS None Estimated Blood Loss: Less than 10 mls TECHNIQUE One percent lidocaine used to anesthetize the right anterior aspect of the wrist. The right radial artery was accessed via the Seldinger technique. A 6 [place] sheath was placed in the right radial artery. 150 mg magnesium sulfate, 800 mcg of nitroglycerin, 1mg Lidocaine and 5000 U Heparin were given through the arterial sheath. The papa catheter was also used to perform selective coronary angiography. At the end the diagnostic angiogram therapeutic heparin was administered giving a therapeutic ACT and the guide catheter was placed in the left main artery followed by Choice PT extra-support wire being placed down the circumflex artery. A 3.5 x 18 mm [place] frontier stent was deployed at 18 rene reducing the severe stenosis to 0%. SANDI-3 flow was present before and after the procedure. Because of the angiographic ambiguity in the proximal LAD a wire was placed into the LAD and an intravascular ultrasound probe was advanced. The MLA in the proximal LAD was 6.5 mm???. Given this did not meet hemodynamic or IVUS significance for severe stenosis the apparatus was removed the sheath was removed and hemostasis achieved using TR banding patient was transferred to the postop holding in stable condition ANGIOGRAPHIC RESULTS The left main artery Normal The left anterior descending artery Has proximal 20 to 30% stenoses with mid vessel 30 to 40% stenosis The circumflex artery Gives rise to a moderate sized ramus intermedius which has an ostial 30% stenosis. The circumflex artery gives rise to a large first obtuse marginal artery which has a proximal 20% stenosis. Distal to the first obtuse marginal artery the circumflex artery has a concentric 70 to 80% stenosis followed by a stent which is widely patent with excellent distal transitioning. The right coronary artery Is a nondominant vessel and has a proximal 70 to 80% stenosis followed by mid vessel 80% concentric stenosis The VERA ventriculogram reveals Not performed The left ventricular end-diastolic pressure Not measured IMPRESSION Severe stenosis in the proximal to mid circumflex artery as described above with successful stenting reducing the stenosis to less than 10% with 1 drug-eluting stent Atherosclerotic and mild proximal LAD disease as confirmed by IVUS Severe stenosis in the proximal mid nondominant right coronary PLAN 1. Dual antiplatelet therapy 2. LDL less than 55 to be achieved with high intensity statin 3. At this point unless patient experiences recalcitrant angina pectoris refractory to standard guideline mediated therapy, I would recommend treating the right coronary artery medically. Should angina become recalcitrant I would consider proceeding with stenting of the proximal to mid right coronary artery given this 2.5 mm caliber vessel 4. Cardiac rehabilitation 5. Avoidance of tobacco products 6. Risk factor modification Electronically signed by : Vidal Moise MD 10/05/2022 12:49:15
[2022-10-05 09:48] LABS: Basophils % 0.3 % (0.1-2.0); Eosinophils # 0.1 K/mm3 (0.0-0.4); Eosinophils % 1.8 % (0.1-12.0); Hematocrit 42.4 % (37.0-47.0); Hemoglobin 13.4 g/dL (12.2-16.2); Lymphocytes # 1.3 K/mm3 (0.7-4.5); Lymphocytes % 21.9 % (10-50); Mean Corpuscular HGB Conc 31.7 g/dL (31.8-35.4); Mean Corpuscular Volume 91.5 fl (81-99); Mean Platelet Volume 6.5 fl (7.4-10.4); Monocytes # 0.4 K/mm3 (0.1-1.0); Monocytes % 6.1 % (1.7-9.3); Platelet Count 343 K/mm3 (142-424); Red Blood Count 4.64 M/mm3 (4.20-5.40); White Blood Count 5.8 K/mm3 (4.8-10.8)
[2022-10-05 09:52] LABS: Chloride 104 mmol/L (98-107); Potassium 4.3 mmoL/L (3.5-5.1); Sodium 141 mmol/L (136-145)
[2022-10-05 09:55] LABS: Anion Gap 12.3 mEq/L (5-15); Blood Urea Nitrogen 11 mg/dl (7-17); Carbon Dioxide 29 mmol/L (22.0-30.0); Creatinine Clearance Estimated 57 mL/min (50-200); Estimated Glomerular Filt Rate 56 ml/min (>60); GFR (African American) 67 ML/MIN (>60)
[2022-10-05 09:56] LABS: Calcium 9.6 mg/dl (8.4-10.2); Glucose 92 mg/dl (74-100)
[2022-10-05 11:41] LABS: CATHL Activated Clotting Time 293 SEC (74-125)
--- NOTE | 2022-10-05 14:10 | P.CONPHA_ITS ---
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
== END 2022-10-05 14:13 | disposition home or self-care (01) ==
PROVIDERS: PCP Nurse Practitioner; Visit Provider Internal Medicine
DX: I25.118 Atherosclerotic heart disease of native coronary artery with other forms of angina pectoris (principal); F17.210 Nicotine dependence, cigarettes, uncomplicated; E78.5 Hyperlipidemia, unspecified; Z95.5 Presence of coronary angioplasty implant and graft; I70.213 Atherosclerosis of native arteries of extremities with intermittent claudication, bilateral legs; Z79.899 Other long term (current) drug therapy; Z79.01 Long term (current) use of anticoagulants; I10 Essential (primary) hypertension
CPT/HCPCS: 80048; 85025; 85347; 92928; 92978; 93454; 99152; C1725; C1769; C1876; C9600; J1644; Q9967

== ENCOUNTER → 2022-10-19 11:12 | Outpatient (CLI) | payer BC, MEDICARE, SELFPAY ==
[2022-10-19 12:10] LABS: Basophils % 0.3 % (0.1-2.0); Eosinophils # 0.1 K/mm3 (0.0-0.4); Eosinophils % 1.2 % (0.1-12.0); Hematocrit 43.5 % (37.0-47.0); Hemoglobin 13.7 g/dL (12.2-16.2); Lymphocytes # 1.7 K/mm3 (0.7-4.5); Lymphocytes % 32.2 % (10-50); Mean Corpuscular HGB Conc 31.5 g/dL (31.8-35.4); Mean Corpuscular Hemoglobin 28.3 pg (27.0-31.2); Mean Corpuscular Volume 89.6 fl (81-99); Mean Platelet Volume 7.8 fl (7.4-10.4); Monocytes # 0.4 K/mm3 (0.1-1.0); Monocytes % 7.5 % (1.7-9.3); Neutrophils % 58.7 % (37.0-80.0); Platelet Count 310 K/mm3 (142-424); Red Blood Count 4.85 M/mm3 (4.20-5.40); Red Cell Distribution Width 14.8 % (11.5-17.5); White Blood Count 5.2 K/mm3 (4.8-10.8)
[2022-10-19 12:18] LABS: Anion Gap 12.6 mEq/L (5-15); Blood Urea Nitrogen 16 mg/dl (7-17); Calcium 9.1 mg/dl (8.4-10.2); Carbon Dioxide 26 mmol/L (22.0-30.0); Chloride 106 mmol/L (98-107); Estimated Glomerular Filt Rate 63 ml/min (>60); GFR (African American) 76 ML/MIN (>60); Glucose 80 mg/dl (74-100); Potassium 4.6 mmoL/L (3.5-5.1); Sodium 140 mmol/L (136-145)
== END ==
PROVIDERS: PCP Nurse Practitioner; Visit Provider Internal Medicine
DX: I25.10 Atherosclerotic heart disease of native coronary artery without angina pectoris (principal)
CPT/HCPCS: 36415; 80048; 85025

== ENCOUNTER → 2022-12-28 21:16 | Outpatient (CLI) | payer BC, MEDICARE, SELFPAY ==
[2022-12-28 21:33] LABS: Coronavirus 19, PCR Not Detected (NotDetected); Influenza A, PCR Not Detected (NotDetected); Influenza B, PCR Not Detected (NotDetected)
== END ==
PROVIDERS: PCP Nurse Practitioner; Visit Provider Nurse Practitioner
DX: R06.02 Shortness of breath (principal); R06.2 Wheezing; J44.1 Chronic obstructive pulmonary disease with (acute) exacerbation
CPT/HCPCS: 87636

== ENCOUNTER → 2023-02-17 14:07 | Outpatient (CLI) | payer BC, MEDICARE, SELFPAY ==
[2023-02-17 15:32] LABS: Alanine Aminotransferase 20 U/L (12-78); Albumin Level 4.5 g/dl (3.5-5.0); Alkaline Phosphatase 109 U/L (38-126); Aspartate Amino Transferase 29 U/L (14-36); Bilirubin,Direct 0.2 mg/dl (0.0-0.4); Bilirubin,Total 0.2 mg/dl (0.2-1.3); Chol/HDL Ratio 2.1 (1-3.5); Cholesterol 221 mg/dl (140-200); HDL Cholesterol 106 mg/dl (40-60); Triglycerides 255 mg/dl (30-150); VLDL Cholesterol 51 mg/dL (0-40)
[2023-02-17 15:43] LABS: Direct LDL Cholesterol 94.21 mg/dL (100-129)
== END ==
PROVIDERS: PCP Nurse Practitioner; Visit Provider Physician Assistant
DX: I25.10 Atherosclerotic heart disease of native coronary artery without angina pectoris (principal); I10 Essential (primary) hypertension; E78.5 Hyperlipidemia, unspecified; R53.83 Other fatigue; Z79.899 Other long term (current) drug therapy
CPT/HCPCS: 36415; 80061; 80076

== ENCOUNTER → 2023-04-04 23:00 | Outpatient (CLI) | payer BC, MEDICARE, SELFPAY ==
[2023-04-04 17:57] LABS: Coronavirus 19, PCR Not Detected (NotDetected); Influenza A, PCR Not Detected (NotDetected); Influenza B, PCR Not Detected (NotDetected)
== END ==
PROVIDERS: PCP Family Medicine; Visit Provider Nurse Practitioner
DX: J06.9 Acute upper respiratory infection, unspecified (principal); J44.1 Chronic obstructive pulmonary disease with (acute) exacerbation; R30.0 Dysuria; B96.89 Other specified bacterial agents as the cause of diseases classified elsewhere
CPT/HCPCS: 87086; 87636

== ENCOUNTER 2023-07-19 21:01 | Outpatient (CLI) | payer BC, MEDICARE, SELFPAY ==
[2023-07-19 18:57] LABS: Adenovirus,PCR Not Detected (NotDetected); Coronavirus 19, PCR Not Detected (NotDetected); Coronavirus 229E Not Detected (NotDetected); Coronavirus NL63 Not Detected (NotDetected); Coronavirus OC43 Not Detected (NotDetected); Coronovirus HKU1,PCR Not Detected (NotDetected); Human Metapneumovirus Not Detected (NotDetected); Influenza A, PCR Not Detected (NotDetected); Influenza AH1, 2009 Not Detected (NotDetected); Influenza AH1, PCR Not Detected (NotDetected); Influenza AH3,PCR Not Detected (NotDetected); Influenza B, PCR Not Detected (NotDetected); Parainfluenza 1, PCR Not Detected (NotDetected); Parainfluenza 2, PCR Not Detected (NotDetected); Parainfluenza 3, PCR Not Detected (NotDetected); Parainfluenza 4, PCR Not Detected (NotDetected); Respiratory Syncytial Virus Not Detected (NotDetected); Rhinovirus/Enterovirus Not Detected (NotDetected)
== END 2023-07-19 23:59 ==
LOC: LAB.DROPOF 21:06
PROVIDERS: PCP Nurse Practitioner; Visit Provider Nurse Practitioner
DX: J06.9 Acute upper respiratory infection, unspecified (principal); Z20.828 Contact with and (suspected) exposure to other viral communicable diseases; Z79.899 Other long term (current) drug therapy
CPT/HCPCS: 87581; 87632; 87635; 87798

== ENCOUNTER 2023-08-22 18:00 | Outpatient (CLI) | payer BC, MEDICARE, SELFPAY ==
[2023-08-22 17:46] LABS: Adenovirus,PCR Not Detected (NotDetected); Coronavirus 19, PCR Not Detected (NotDetected); Coronavirus 229E Not Detected (NotDetected); Coronavirus NL63 Not Detected (NotDetected); Coronavirus OC43 Not Detected (NotDetected); Coronovirus HKU1,PCR Not Detected (NotDetected); Human Metapneumovirus Not Detected (NotDetected); Influenza A, PCR Not Detected (NotDetected); Influenza AH1, 2009 Not Detected (NotDetected); Influenza AH1, PCR Not Detected (NotDetected); Influenza AH3,PCR Not Detected (NotDetected); Influenza B, PCR Not Detected (NotDetected); Parainfluenza 1, PCR Not Detected (NotDetected); Parainfluenza 2, PCR Not Detected (NotDetected); Parainfluenza 3, PCR Not Detected (NotDetected); Parainfluenza 4, PCR Not Detected (NotDetected); Respiratory Syncytial Virus Not Detected (NotDetected); Rhinovirus/Enterovirus Not Detected (NotDetected)
== END 2023-08-22 23:59 | disposition home or self-care (01) ==
LOC: LAB.DROPOF 08-23 10:00
PROVIDERS: PCP Nurse Practitioner; Visit Provider Nurse Practitioner
DX: J06.9 Acute upper respiratory infection, unspecified (principal); J44.1 Chronic obstructive pulmonary disease with (acute) exacerbation; R51.9 Headache, unspecified; R06.02 Shortness of breath; R53.83 Other fatigue; Z79.899 Other long term (current) drug therapy
CPT/HCPCS: 87632; 87635

== ENCOUNTER 2024-01-05 13:55 | Outpatient (CLI) | payer BC, SELFPAY ==
[2024-01-05 14:18] LABS: Basophils # 0.1 K/mm3 (0-0.2); Basophils % 0.8 % (0.1-2.0); Eosinophils # 0.1 K/mm3 (0.0-0.4); Eosinophils % 0.9 % (0.1-12.0); Hematocrit 45.1 % (37.0-47.0); Lymphocytes # 1.7 K/mm3 (0.7-4.5); Lymphocytes % 23.6 % (10-50); Mean Corpuscular HGB Conc 31.1 g/dL (31.8-35.4); Mean Corpuscular Hemoglobin 29.2 pg (27.0-31.2); Mean Corpuscular Volume 93.7 fl (81-99); Mean Platelet Volume 7.6 fl (7.4-10.4); Monocytes # 0.5 K/mm3 (0.1-1.0); Monocytes % 7.4 % (1.7-9.3); Neutrophils # 4.7 K/mm3 (1.8-7.8); Neutrophils % 67.2 % (37.0-80.0); Platelet Count 335 K/mm3 (142-424); Red Blood Count 4.81 M/mm3 (4.20-5.40); Red Cell Distribution Width 16.2 % (11.5-17.5); White Blood Count 7.1 K/mm3 (4.8-10.8)
[2024-01-05 14:58] LABS: Alanine Aminotransferase 17 U/L (12-78); Albumin Level 3.8 g/dl (3.5-5.0); Alkaline Phosphatase 85 U/L (38-126); Anion Gap 7.1 mEq/L (5-15); Aspartate Amino Transferase 28 U/L (14-36); Bilirubin,Direct 0.2 mg/dl (0.0-0.4); Bilirubin,Indirect 0.2 mg/dL (0.0-0.9); Bilirubin,Total 0.4 mg/dl (0.2-1.3); Bilirubin,Unconjugated 0.2 mg/dL (0.0-1.1); Blood Urea Nitrogen 15 mg/dl (7-17); Calcium 9.4 mg/dl (8.4-10.2); Carbon Dioxide 27 mmol/L (22.0-30.0); Chloride 108 mmol/L (98-107); Chol/HDL Ratio 2.8 (1-3.5); Cholesterol 239 mg/dl (140-200); Estimated Glomerular Filt Rate 55 ml/min (>60); GFR (African American) 67 ML/MIN (>60); Glucose 76 mg/dl (74-100); HDL Cholesterol 84 mg/dl (40-60); Potassium 4.1 mmoL/L (3.5-5.1); Sodium 138 mmol/L (136-145); Total Protein,Serum 6.3 g/dl (6.3-8.2); Triglycerides 213 mg/dl (30-150); VLDL Cholesterol 43 mg/dL (0-40)
[2024-01-05 15:09] LABS: Direct LDL Cholesterol 109.33 mg/dL (100-129)
[2024-01-05 15:14] LABS: Free T4 (Free Thyroxine) 0.77 ng/dl (0.78-2.19)
[2024-01-05 15:27] LABS: Thyroid Stimulating Hormone 1.22 uIU/mL (0.465-4.68)
== END 2024-01-05 23:59 | disposition home or self-care (01) ==
PROVIDERS: PCP Family Medicine; Visit Provider Nurse Practitioner
DX: E78.2 Mixed hyperlipidemia (principal); I10 Essential (primary) hypertension; R94.31 Abnormal electrocardiogram [ECG] [EKG]; I25.118 Atherosclerotic heart disease of native coronary artery with other forms of angina pectoris
CPT/HCPCS: 36415; 80048; 80061; 80076; 83735; 84439; 84443; 85025

== ENCOUNTER 2024-10-02 10:41 | Outpatient (CLI) | payer BC, SELFPAY ==
--- NOTE | 2024-10-02 | ECG_ITS ---
APPROVED REPORT Exam: Resting ECG HR:79 bpm ECG Measurements Heart Rate 79 AXES UT 165 P 78 QRSd 89 QRS 69 QT 382 T 0 QTc 417 Conclusion SINUS RHYTHM ANTEROSEPTAL MYOCARDIAL INFARCTION , OF INDETERMINATE AGE [40+ ms Q WAVE IN V1-V4] ABNORMAL ECG UNCONFIRMED REPORT Electronically signed by : Thai Stephenson MD 10/04/2024 08:38:25
--- NOTE | 2024-10-02 11:12 | XR_ITS ---
FINAL REPORT CLINICAL HISTORY: COPD exacerbation, chest pain COMPARISON: 05/22/2022 FINDINGS: 2 views of the chest were obtained . The heart is normal in size. The mediastinum is within normal limits. There is underlying emphysema. The lungs are otherwise clear. There is no effusion or pneumothorax. Osseous structures are unremarkable. IMPRESSION: No acute cardiopulmonary process. Reviewed, Interpreted and Dictated by Maria Esther Manning MD Transcribed by Kelsi Holliday Authenticated and [facility]
[2024-10-02 11:32] LABS: Hematocrit 45.2 % (37.0-47.0); Hemoglobin 14.7 g/dL (12.2-16.2); Mean Corpuscular HGB Conc 32.5 g/dL (31.8-35.4); Mean Corpuscular Hemoglobin 29.4 pg (27.0-31.2); Mean Corpuscular Volume 90.4 fl (81-99); Red Cell Distribution Width-SD 48.3 fL
[2024-10-02 11:33] LABS: Basophils % 0.3 % (0.1-2.0); Eosinophils # 0.1 Kmm3 (0.0-0.4); Eosinophils % 0.7 % (0.1-12.0); Immature Granulocytes # 0.02 10^3uL; Immature Granulocytes % 0.3 %; Lymphocytes # 2.1 K/mm3 (0.7-4.5); Lymphocytes % 29.9 % (10-50); Mean Platelet Volume 9.3 fl (7.4-10.4); Monocytes # 0.6 K/mm3 (0.1-1.0); Monocytes % 8.4 % (1.7-9.3); Neutrophils # 4.2 K/mm3 (1.8-7.8); Neutrophils % 60.4 % (37.0-80.0); Nucleated Red Blood Cells # 0 10^3/uL; Nucleated Red Blood Cells % 0 %; Platelet Count 316 K/mm3 (142-424); Red Cell Distribution Width 14.6 % (11.5-17.5)
[2024-10-02 12:00] LABS: Alanine Aminotransferase 23 U/L (12-78); Albumin Level 4.6 g/dl (3.5-5.0); Albumin/Globulin Ratio 1.8 (1.1-1.8); Alkaline Phosphatase 102 U/L (38-126); Anion Gap 9.5 mEq/L (5-15); Aspartate Amino Transferase 32 U/L (14-36); Bilirubin,Total 0.4 mg/dl (0.2-1.3); Blood Urea Nitrogen 20 mg/dl (7-17); Calcium 9.7 mg/dl (8.4-10.2); Carbon Dioxide 28 mmol/L (22.0-30.0); Chloride 107 mmol/L (98-107); Estimated Glomerular Filt Rate 62 ml/min (>60); GFR (African American) 76 ML/MIN (>60); Globulin 2.6 g/dL (1.3-3.2); Glucose 84 mg/dl (74-100); Potassium 4.5 mmoL/L (3.5-5.1); Sodium 140 mmol/L (136-145); Total Protein,Serum 7.2 g/dl (6.3-8.2)
[2024-10-02 12:27] LABS: Troponin I < 0.01 ng/ml (0.00-0.034)
== END 2024-10-02 23:59 | disposition home or self-care (01) ==
LOC: LAB 10:43
PROVIDERS: PCP Nurse Practitioner; Visit Provider Nurse Practitioner
DX: J44.1 Chronic obstructive pulmonary disease with (acute) exacerbation (principal); I25.2 Old myocardial infarction; R94.31 Abnormal electrocardiogram [ECG] [EKG]
CPT/HCPCS: 36415; 71046; 80053; 84484; 85025; 93005

== ENCOUNTER 2025-01-23 08:41 | Outpatient (CLI) | payer MEDICARE, OTHER, SELFPAY ==
--- OUTSIDE RECORDS SUMMARY | 2025-01-23 08:56 | XMS_ITS | Clinical Summary ---
Author Organization [facility] Address [address] [place] [address] Care Team Providers Care Shipper/Receiver Name Role Phone Unavailable Primary Care Provider Unavailabl e Social History Tobacco Use Types Packs/Day Years Used Date Smoking Tobacco: Never Assessed Comments Unknown Sex and Gender Information Value Date Recorded Sex Assigned at Not on file Legal Sex Female 3:37 PM EDT Gender Identity Not on file Sexual Orientation Not on file Last Filed Vital Signs Vital Sign Reading Time Taken Comments Blood Pressure 129/81 09/22/2022 3:41 PM EDT Pulse - - Temperature - - Respiratory Rate - - Oxygen Saturation - - Inhaled Oxygen Concentration - - Weight 64.9 kg (143 lb) 09/22/2022 3:41 PM EDT Height 165.1 cm (5' 5 ) 09/22/2022 3:41 PM EDT Body Mass Index 23.8 09/22/2022 3:41 PM EDT Plan of Treatment Health Maintenance Due Date Last Done Comments [facility]-Bone Density Scan 1957 [facility]-Depression Screening 1957 [facility]-/Child/Adol SDOH Screenings 1957 [facility]- SDOH Screenings 1975 [facility]-Adult SDOH Screenings 1975 [facility]-DTaP,Tdap,and Td Vaccine s (1 - Tdap) 1976 CT Colonography 2002 Colonoscopy 2002 FIT-DNA 2002 FIT 2002 FOBT 2002 Sigmoidoscopy 2002 [facility]-Colorectal Cancer Screening 2002 [facility]-Pneumococcal Vaccine: 50 + Years (1 of 1 - PCV) 2007 [facility]-Zoster Vaccines (1 of 2) 2007 [id number] Vaccine (1 - 20 24-25 season) 2024 [facility]-Influenza Vaccine (#1) 2024 [facility]-RSV Vaccine: 60+ Years o r (1 - 1-dose 75+ series) 2032 HPV Vaccines Aged Out No longer eligi ble based on patient's age to complete this topic [facility]-HIB Vaccines Aged Out No longer e ligible based on patient's age to complete this topic [facility]-Hepatitis A Vaccines Aged Out No longer eligible based on patient's age to complete this topic [facility]-IPV Vaccines Aged Out No longer e ligible based on patient's age to complete this topic [facility]-Rotavirus Vaccines Aged Out No lo nger eligible based on patient's age to complete this [place] [phone]
--- NOTE | 2025-01-23 09:00 | CT_ITS ---
FINAL REPORT TECHNIQUE: Thin section axial images were obtained through the lungs using a low-dose technique per lung cancer screening protocol. Reconstruction images were obtained using the axial data. Exam was performed using dose reduction technique. This study was performed with techniques to keep radiation doses as low as reasonably achievable (ALARA). Individualized dose reduction techniques using automated exposure control or adjustment of mA and/or kV according to the patient's size were employed. CLINICAL HISTORY: lung cancer screening FORMER SMOKER, 1 PPD / 40 YRS QUIT 1 YR AGO COMPARISON: CT chest 10/29/2020 FINDINGS: CTDLvol: 2.90 DLP: 106.81 Former smoker, quit 1 year ago 40 pack year history Lungs: No acute pulmonary abnormality. There is a 5 mm left upper lobe nodule best seen on image #15 of series 4, stable. There are clusters of nodules in the right and left lower lobes, the largest of which measures up to 7 mm in size in the left lower lobe. There are multiple additional subpleural predominant bilateral upper lobe nodules. Lymph nodes: There is a mildly enlarged precarinal lymph node measuring 14 mm in size. Mediastinum: Heart size is normal. Prominent coronary artery calcifications are present, responsible for the S designation. Pleura/pericardium: No pleural or pericardial effusion. Other: No acute abnormality in the upper abdomen. IMPRESSION: Multiple pulmonary nodules are noted, including a 7 mm nodule in the left lower lobe. Prominent coronary artery calcifications are present, which is responsible for the S designation. Lung RADS: 3S Recommendation: 6-month LDCT follow-up. Reviewed, Interpreted and Dictated by Maria Esther Manning MD Transcribed by Karey Feliciano Authenticated and [facility]
== END 2025-01-23 23:59 | disposition home or self-care (01) ==
LOC: RAD 08:42
PROVIDERS: PCP Family Medicine; Visit Provider Family Medicine
DX: R91.8 Other nonspecific abnormal finding of lung field (principal); I25.10 Atherosclerotic heart disease of native coronary artery without angina pectoris; Z12.2 Encounter for screening for malignant neoplasm of respiratory organs; F17.210 Nicotine dependence, cigarettes, uncomplicated
CPT/HCPCS: 71271